=== PATIENT | male | born 1950 | race Caucasian/White ===

== ENCOUNTER 2023-09-20 06:18 | Day surgery (SDC) | payer MEDICARE, SELFPAY ==
[2023-09-20] VITALS (15 sets, daily range): BP systolic 105–138; BP diastolic 64–75; BMI 26.4
[2023-09-20] MEDS: NSS 250 ML IV (07:06)
[2023-09-20] MEDS: LOW STRENGTH ASPIRIN 324 MG PO (07:26)
[2023-09-20 09:07] LABS: ACT-LR - POC 268 Seconds (116-155)
--- NOTE | 2023-09-20 16:33 | ITS.CL.CATH ---
Pleat Taper - Catheterization
Cardiac Catheterization
Procedure Report:
CARDIAC CATHETERIZATION REPORT
Date of Procedure: 09/20/2023
Referring: Jose Harris MD
HEMODYNAMIC DATA
AO: 130/70
LV: 130/17
LEFT VENTRICULOGRAPHY: Normal left ventricular wall motion with EF 54%
CORONARY ANGIOGRAPHY
Dominance: Right
Left Main: Normal
LAD: Mild luminal irregularities in the LAD proper. The medium sized first diagonal branch has mild luminal irregularities. There is 70% proximal stenosis in the large second diagonal branch.
Circumflex: Trivial luminal irregularities
RCA: Dominant vessel with trivial luminal irregularities
FloWire assessment: The functional significance of the 70% proximal D2 lesion was evaluated with FloWire. A 5 [place] JL 4 guide catheter was used. Heparin was used for anticoagulation. A [place] wire was advanced into the distal aspect of D2.
iFR measurements were 0.94, 0.94, and 0.95. These are all consistent with nonflow-limiting disease
Closure Device: None-the procedure was performed via the right radial artery. The Jagdeep's test was normal prior to the procedure.
Radiation (mGy): 595
DAP (cm2.Gy): 53.0
Fluoroscopy time: 13.9 minutes
CONCLUSIONS
1: Normal left ventricular function with EF 54%
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 This lesion is nonflow limiting by iFR criteria
3. Recommend aspirin 81 mg daily (currently using 3 times weekly) and statin to achieve LDL less than 70 (55 if possible)
Copy to:Jose Harris MD, Mathew Velez DO
Yash Garrett MD, [facility], [facility]
== END 2023-09-20 12:42 | disposition home or self-care (01) ==
LOC: CATH 06:18
PROVIDERS: ATTENDING PHYSICIAN Internal Medicine Cardiovascular Disease; FAMILY PHYSICIAN Family Medicine; OTHER PHYSICIAN Internal Medicine Cardiovascular Disease
DX: I25.10 Atherosclerotic heart disease of native coronary artery without angina pectoris (principal); N40.0 Benign prostatic hyperplasia without lower urinary tract symptoms; Z80.52 Family history of malignant neoplasm of bladder; Z80.42 Family history of malignant neoplasm of prostate; Z79.82 Long term (current) use of aspirin; R94.31 Abnormal electrocardiogram [ECG] [EKG]; E78.5 Hyperlipidemia, unspecified; G43.909 Migraine, unspecified, not intractable, without status migrainosus; I12.9 Hypertensive chronic kidney disease with stage 1 through stage 4 chronic kidney disease, or unspecified chronic kidney disease; N18.9 Chronic kidney disease, unspecified
CPT/HCPCS: C1769; C1894; 85347; 93456; 93571; C1760; Q9967

== ENCOUNTER → 2023-10-04 17:21 | Outpatient (REF) | payer MEDICARE, SELFPAY | LOC: MRI 3T 17:21 | PROVIDERS: ATTENDING PHYSICIAN Specialist; FAMILY PHYSICIAN Family Medicine | DX: R97.20 Elevated prostate specific antigen [PSA] (principal) | CPT/HCPCS: 72197; A9575 ==